=== PATIENT | female | born 1950 | race Caucasian/White ===

== ENCOUNTER 2024-12-27 10:39 | Outpatient (OUT) | payer OTHER, SELFPAY ==
[2024-12-27 11:32] LABS: Basophils Absolute Auto 0.1 10^3/uL (0.0-0.1); Basophils Percent Auto 0.9 % (0.2-2.0); Eosinophils Absolute Auto 0.1 10^3/uL (0.0-0.7); Eosinophils Percent Auto 2.4 % (0.9-7.0); Hematocrit 45.4 % (36.0-48.0); Hemoglobin 14.4 g/dL (12.0-16.0); Immature Granulocytes Abs Auto 0.03 10^3/uL (0.00-0.03); Immature Granulocytes Pct Auto 0.5 % (0.0-0.5); Lymphocytes Absolute Auto 1.5 10^3/uL (1.2-3.8); Lymphocytes Percent Auto 26.8 % (20.5-60.0); Mean Corpuscular HGB Conc 31.7 g/dL (29.9-35.2); Mean Corpuscular Hemoglobin 28.7 pg (26.7-34.0); Mean Corpuscular Volume 90.4 fL (81.0-99.0); Mean Platelet Volume 12.2 fL (9.5-13.5); Monocytes Absolute Auto 0.6 10^3/uL (0.3-0.8); Monocytes Percent Auto 11.1 % (1.7-12.0); Neutrophils Absolute Auto 3.4 10^3/uL (1.4-6.5); Neutrophils Percent Auto 58.3 % (43.0-75.0); Platelet Count 178 10^3/uL (150-450); Red Blood Count 5.02 10^6/uL (4.20-5.40); Red Cell Distribution Width 13.4 % (11.0-15.0); White Blood Count 5.8 10^3/uL (4.0-11.0)
[2024-12-27 11:57] LABS: Estimated Average Glucose 117 mg/dL; Glycohemoglobin A1C 5.7 % (4.5-6.2)
[2024-12-27 12:11] LABS: Alanine Aminotransferase 12 U/L (14-59); Albumin Globulin Ratio 1.1; Albumin Level 3.7 g/dL (3.4-5.0); Alkaline Phosphatase 107 U/L (46-116); Anion Gap 14.6; Aspartate Amino Transferase 24 U/L (15-37); BUN Creatinine Ratio 11.9; Bilirubin Total 0.9 mg/dL (0.2-1.0); Calcium 9.7 mg/dL (8.5-10.1); Chloride 105 mmol/L (98-107); Chol HDL Ratio 2.5; Cholesterol 206 mg/dL (<=200); Estimated GFR (African America 43 (>=60 mL/min/1.73m^2); Estimated GFR (Non-African Ame 36 (>=60 mL/min/1.73m^2); Free T3 3.68 pg/mL (2.18-3.98); Globulin 3.5 g/dL; Glucose 98 mg/dL (74-106); HDL Cholesterol 82 mg/dL (40-60); Potassium 4.6 mmol/L (3.5-5.1); Sodium 143 mmol/L (136-145); Thyroid Stimulating Hormone 1.098 uIU/mL (0.358-3.740); Total Protein 7.2 g/dL (6.4-8.2); Triglycerides 79 mg/dL (<=150); VLDL CHOLESTEROL 15.8 mg/dL
== END 2024-12-27 10:40 | disposition home or self-care (01) ==
LOC: LAB 10:44
PROVIDERS: PCP Family Medicine; Visit Provider Family Medicine
DX: R73.09 Other abnormal glucose (principal); R03.0 Elevated blood-pressure reading, without diagnosis of hypertension; J30.2 Other seasonal allergic rhinitis; H25.9 Unspecified age-related cataract; D22.9 Melanocytic nevi, unspecified; K21.9 Gastro-esophageal reflux disease without esophagitis; K44.9 Diaphragmatic hernia without obstruction or gangrene; E78.5 Hyperlipidemia, unspecified; E03.9 Hypothyroidism, unspecified; I10 Essential (primary) hypertension; R53.83 Other fatigue
CPT/HCPCS: 36415; 80053; 80061; 83036; 84436; 84443; 84481; 85025